=== PATIENT | female | born 1965 | race African-American/Black ===

== ENCOUNTER 2017-02-23 15:59 | Emergency (ER) | payer BC, OTHER ==
[2017-02-23] MEDS ORDERED: ACETAMINOPHEN 325 MG TABLET PO ONE (17:06)
--- NOTE | 2017-02-23 17:08 | ER Document Report ---
ED Medical Screen (RME) - General Stated Complaint: SIDE PAIN Notes: Patient states she had a colonoscopy yesterday and is not feeling well since. She states she felt okay when she woke up this morning but as the day as per request, she has a sore throat chills, and right lower abdomen/side pain. Patient denies nausea, vomiting or diarrhea. Patient also has nasal congestion. I have greeted and performed a rapid initial assessment of this patient. A comprehensive ED assessment and evaluation of the patient, analysis of test results and completion of the medical decision making process will be conducted by additional ED providers. - Related Data Allergies/Adverse Reactions: No Known Allergies Allergy (Verified 02/23/17 17:03) Physical Exam - Vital signs Vitals: Temp Pulse Resp BP Pulse Ox 99.7 F 88 18 134/64 H 97 02/23/17 16:44 02/23/17 16:44 02/23/17 16:44 02/23/17 16:44 02/23/17 16:44 - Abdominal Bowel sounds: Normal Notes: Patient tender right lower lateral abdomen. When pushing in right lower quadrant, patient states that actually feels good. Course - Vital Signs Vital signs: Temp Pulse Resp BP Pulse Ox 99.7 F 88 18 134/64 H 97 02/23/17 16:44 02/23/17 16:44 02/23/17 16:44 02/23/17 16:44 02/23/17 16:44
[2017-02-23 17:42] LABS: ABSOLUTE BASOPHILS # (AUTO) 0.1 10^3/uL (0.0-0.2); ABSOLUTE EOSINOPHILS # (AUTO) 0.1 10^3/uL (0.0-0.6); ABSOLUTE LYMPHOCYTES (AUTO) 1.8 10^3/uL (0.5-4.7); ABSOLUTE MONOCYTES (AUTO) 1.2 10^3/uL (0.1-1.4); ABSOLUTE NEUT (AUTO) 13.3 10^3/uL (1.7-8.2); BASOPHILS % (AUTO) 0.9 % (0-2); EOSINOPHILS % (AUTO) 0.4 % (0-6); HEMATOCRIT 33.8 % (36.0-47.0); HEMOGLOBIN 10.7 g/dL (12.0-15.5); HGB HCT DIFFERENCE -1.7; LYMPHOCYTES % (AUTO) 10.8 % (13-45); MEAN CORPUSCULAR HEMOGLOBIN 18.8 pg (27.0-33.4); MEAN CORPUSCULAR HGB CONC 31.6 g/dL (32.0-36.0); MONOCYTES % (AUTO) 7.3 % (3-13); RED BLOOD COUNT 5.67 10^6/uL (3.72-5.28); RED CELL DISTRIBUTION WIDTH 17.8 % (11.5-14.0); SEGMENTED NEUTROPHILS % (AUTO) 80.6 % (42-78); WHITE BLOOD COUNT 16.5 10^3/uL (4.0-10.5)
[2017-02-23 17:53] LABS: ALANINE AMINOTRANSFERASE 21 U/L (9-52); ALBUMIN 3.8 g/dL (3.5-5.0); ALKALINE PHOSPHATASE 110 U/L (38-126); ANION GAP 12 (5-19); ASPARTATE AMINO TRANSFERASE 19 U/L (14-36); BILIRUBIN,DIRECT 0.2 mg/dL (0.0-0.4); BILIRUBIN,TOTAL 0.5 mg/dL (0.2-1.3); BLOOD UREA NITROGEN 11 mg/dL (7-20); CALCIUM 8.7 mg/dL (8.4-10.2); CARBON DIOXIDE 25 mmol/L (22-30); CHLORIDE 102 mmol/L (98-107); CREATININE RESULT 0.75 mg/dL (0.52-1.25); GLUCOSE 99 mg/dL (75-110); LIPASE 72.5 U/L (23-300); POTASSIUM 4.6 mmol/L (3.6-5.0); SODIUM 138.8 mmol/L (137-145); TOTAL PROTEIN 7.4 g/dL (6.3-8.2)
[2017-02-23 18:01] LABS: APPEARANCE,URINE CLOUDY; BILIRUBIN,URINE NEGATIVE (NEGATIVE); GLUCOSE, URINE NEGATIVE (NEGATIVE); KETONES,URINE NEGATIVE (NEGATIVE); LEUKOCYTE ESTERASE,URINE TRACE (NEGATIVE); NITRITE,URINE NEGATIVE (NEGATIVE); PROTEIN,URINE NEGATIVE (NEGATIVE); URINE SPECIFIC GRAVITY 1.019; UROBILINOGEN,URINE NEGATIVE mg/dL (<2.0)
[2017-02-23 18:07] LABS: ACANTHOCYTES 1+; ANISOCYTOSIS 1+; HYPOCHROMASIA 2+; MICROCYTOSIS 3+; OVALOCYTES 1+; PLATELET CLUMPS PRESENT; POIKILOCYTOSIS 2+; POLYCHROMASIA 1+; TARGET CELLS 1+; TOXIC VACUOLATION PRESENT
[2017-02-23 18:08] LABS: MEAN CORPUSCULAR VOLUME 60 fl (80-97)
[2017-02-23] MEDS ORDERED: CARISOPRODOL 350 MG TABLET PO ONE (23:34)
[2017-02-23] MEDS ORDERED: NORMAL SALINE 1000 ML 500 ML IV ONE (23:34)
--- NOTE | 2017-02-24 00:26 | ER Document Report ---
ED General - General Mode of Arrival: Ambulatory Information source: Patient TRAVEL OUTSIDE OF THE [place] IN LAST 30 DAYS: No - HPI Patient complains to provider of: Right hip and right back pain Onset: This afternoon Associated symptoms: Other - see HPI <DEVIN SANTORO - Last Filed: 02/24/17 01:38> <MARIODASH VIOLETA - Last Filed: 02/24/17 05:46> - General Chief Complaint: Abdominal Pain Stated Complaint: SIDE PAIN Notes: 51 year old female with history of anemia presents to the ED complaining of right hip and back pain secondary to a colonoscopy that was performed earlier this afternoon. Patient had the colonoscopy secondary to a GI bleed that was related to her anemia. The test came back negative. Patient denies being uncomfortable during the procedure. Patient reports pain with movement. (DEVIN SANTORO) - Related Data Allergies/Adverse Reactions: No Known Allergies Allergy (Verified 02/23/17 17:03) Past Medical History - General Information source: Patient - Social History Smoking Status: Unknown if Ever Smoked Chew tobacco use (# tins/day): No Frequency of alcohol use: Occasional Drug Abuse: None Family History: Reviewed & Not Pertinent Patient has suicidal ideation: No Patient has homicidal ideation: No - Past Medical History Cardiac Medical History: Reports: Other - Anemia Renal/ Medical History: Denies: Hx Peritoneal Dialysis Past Surgical History: Reports: Hx Section, Hx Cholecystectomy, Hx Tubal Ligation <DEVIN SANTORO - Last Filed: 02/24/17 01:38> Review of Systems - Review of Systems Constitutional: No symptoms reported EENT: No symptoms reported Cardiovascular: No symptoms reported Respiratory: No symptoms reported Gastrointestinal: No symptoms reported Genitourinary: No symptoms reported Female Genitourinary: No symptoms reported Musculoskeletal: See HPI, Back pain - right, Joint pain - right hip Skin: No symptoms reported Hematologic/Lymphatic: No symptoms reported Neurological/Psychological: No symptoms reported -: Yes All other systems reviewed and negative <DEVIN SANTORO - Last Filed: 02/24/17 01:38> Physical Exam - General General appearance: Alert In distress: None - HEENT Head: Normocephalic, Atraumatic Eyes: Normal Extraocular movements intact: Yes Pupils: PERRL Mucous membranes: Dry - Respiratory Respiratory status: No respiratory distress Breath sounds: Normal - Cardiovascular Rhythm: Regular Heart sounds: Normal auscultation - Abdominal Inspection: Normal Distension: No distension Tenderness: Nontender. No: Guarding, Rebound - Back Back: Normal - Extremities General upper extremity: Normal inspection, Normal ROM General lower extremity: No: Normal inspection - see hip exam below Hip: Tender - Right hip, IT band, SI joint, and Psoas muscle are tender to palpate. - Neurological Neuro grossly intact: Yes Cognition: Normal Orientation: AAOx4 [place] Coma Scale Eye Opening: Spontaneous [place] Coma Scale Verbal: Oriented [place] Coma Scale Motor: Obeys Commands [place] Coma Scale Total: 15 Speech: Normal - Psychological Associated symptoms: Normal affect, Normal mood - Skin Skin Temperature: Warm Skin Moisture: Dry Skin Color: Normal <DEVIN SANTORO - Last Filed: 02/24/17 01:38> Course - Laboratory Result Diagrams: 02/23/17 17:28 02/23/17 17:28 <DEVIN SANTORO - Last Filed: 02/24/17 01:38> - Laboratory Result Diagrams: 02/23/17 17:28 02/23/17 17:28 <DASH MARTIN - Last Filed: 02/24/17 05:46> - Re-evaluation Re-evalutation: 02/24/17 00:42 Patient with no abdominal pain or tenderness to palpation. Patient does have right hip pain which is likely from positioning during her colonoscopy. Blood work appears hemoconcentrated. Otherwise within normal limits. Patient will be discharged home with follow-up which worked well for her in the emergency department. She is to follow-up with her doctor and return if any worsening or concerning symptoms. Understands and agrees with plan. Neurovascularly intact. Stable for discharge. Return if any worsening or concerning symptoms. (DASH MARTIN) - Vital Signs Vital signs: Temp Pulse Resp BP Pulse Ox 99.7 F 88 18 118/69 100 02/23/17 22:34 02/23/17 16:44 02/23/17 16:44 02/24/17 00:31 02/24/17 00:31 - Laboratory Laboratory results interpreted by me: 02/23/17 02/23/17 17:28 17:30 WBC 16.5 H RBC 5.67 H Hgb 10.7 L Hct 33.8 L MCV 60 L MCH 18.8 L MCHC 31.6 L RDW 17.8 H Seg Neutrophils % 80.6 H Lymphocytes % 10.8 L Absolute Neutrophils 13.3 H Ur Leukocyte Esterase TRACE H Discharge <DEVIN SANTORO - Last Filed: 02/24/17 01:38> <DASH MARTIN - Last Filed: 02/24/17 05:46> - Discharge Clinical Impression: Sacroiliac pain Strain of right psoas muscle Qualifiers: Encounter type: initial encounter Qualified Code(s): S76.011A - Strain of muscle, fascia and tendon of right hip, initial encounter Condition: Stable Disposition: HOME, SELF-CARE Instructions: Muscle Strain ([facility]) Additional Instructions: Please follow-up with your doctor tomorrow. Prescriptions: Carisoprodol [Soma] 350 mg PO DAILYP PRN #10 tablet PRN Reason: Forms: Treatment of Relative/Child Scribe Attestation: 02/24/17 05:46 I personally performed the services described in the documentation, reviewed and edited the documentation which was dictated to the scribe in my presence, and it accurately records my words and actions. (DASH MARTIN) Scribe Documentation - Scribe Written by Kaylyn:: Kaylyn Vallecillo, 02/24/2017 [id number] acting as scribe for :: Mario <DEVIN SANTORO - Last Filed: 02/24/17 01:38>
[2017-02-24 00:40] VITALS: BP 118/69
== END 2017-02-24 00:53 | disposition home or self-care (01) ==
LOC: ER 15:59
DX: S76.011A Strain of muscle, fascia and tendon of right hip, initial encounter (principal); M53.3 Sacrococcygeal disorders, not elsewhere classified; R10.9 Unspecified abdominal pain; M25.551 Pain in right hip; M54.9 Dorsalgia, unspecified; X58.XXXA Exposure to other specified factors, initial encounter
CPT/HCPCS: 99284; 36415; 87070; 87880; 83690; 85025; 80053; 81001; 87804; J3490; J7030